=== PATIENT | male | born 1965 | race Caucasian/White ===

== ENCOUNTER 2025-06-11 11:58 | Observation (INO) ==
[2025-06-11] MEDS: ROCEPHIN VIAL 1 GRAM 1 G in NS 100 ML IV 100 ML IV SCH (13:04)
[2025-06-11] MEDS: ZITHROMAX INJ 500 MG VIAL 500 MG in NS 250 ML IV 250 ML IV SCH (13:04)
[2025-06-11 13:10] LABS: ABG BASE EXCESS 7.4 mmol/L (-2.0-2.0); ABG HCO3 32.0 mmol/L (22-26); ABG OXYGEN SATURATION 93.0 % (90-100); ABG PCO2 44.0 mmHg (35.0-45.0); ABG PH 7.470 (7.35-7.45); ABG PO2 64.0 mmHg (80.0-100.0)
[2025-06-11 13:11] LABS: ABG ALLEN TEST POS
[2025-06-11 13:28] LABS: BLOOD/HEMOGLOBIN,URINE NEGATIVE (NEGATIVE); LEUKOCYTE ESTERASE ,URINE NEGATIVE (NEGATIVE); NITRITES,URINE NEGATIVE (NEGATIVE)
[2025-06-11 13:31] VITALS: BMI 46.5
[2025-06-11 13:37] LABS: MEAN PLATELET VOLUME 8.4 fL (7.4-11.0); RED CELL DISTRIBUTION WIDTH 13.7 % (11.6-16.5)
[2025-06-11 13:38] LABS: APPEARANCE,URINE CLEAR (CLEAR)
[2025-06-11 13:45] LABS: CREATININE 1.05 mg/dL (0.70-1.30); eGFR NON BLACK RACES > 60 (>60)
[2025-06-11] MEDS: DUONEB 0.5 MG/3 MG (3 mL) NEB SCH (13:45)
[2025-06-11] MEDS: ULTRAM PO PRN (15:20)
--- NOTE | 2025-06-11 18:06 | DR.H&P ---
H&P History & Physical for Day of: H&P Date: 06/11/25 Chief Complaint Chief Complaint: CCC, SOB History of Present Illness History of Present Illness: PT IS 59 WM, DIRECT ADMIT FROM DR AWAD'S [facility] OFFICE WITH SOB AND INCREASED CCC. 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 PT WAS SEEN IN ER 7/3 AT [facility] AND WAS STARTED ON PO STEROIDS WITHOUT IMPROVEMENT. PT CO PRODUCTIVE COUGH AND WEAKNESS WITH POOR PO INTAKE. PT ADMITTED FOR TREATMENT AND EVALUATION OF ACUTE ILLNESS. Past Medical History Past Medical History: Anxiety, Asthma, COPD, Dyslipidemia and Hypertension Past Surgical History Surgical History: Abdominal Surgery, Ortho Surgery and Other Family History Family Medical History: Cancer and Heart Failure Social History Does patient currently use any type of tobacco product: No Have you used tobacco products in the last 12 months: No Type of Tobacco Use: None Does any household member use tobacco: No Alcohol Use: None Drug Use: None Medications Home Medications: Home Medications Medication Instructions Recorded Confirmed Type albuterol 90 mcg-budesonide 80 See Rx Instructions .Ro chilkoot .COMPLEX 05/27/25 06/11/25 History mcg/actuation HFA aerosol inhaler (Airsupra) amlodipine 10 mg tablet 10 mg PO QDAY 05/27/2506/11 History atorvastatin 10 mg tablet 10 mg PO QDAY 05/27/2506/11 History hydrochlorothiazide 25 mg tablet 25 mg PO QDAY 5 06/11/25 History hydroxyzine pamoate 25 mg capsule 25 mg PO BID 5 06/11/25 History losartan 50 mg tablet 50 mg PO QDAY 05/27/2506/11 History montelukast 10 mg tablet 10 mg PO QDAY 05/27/2506/11 History terbutaline 2.5 mg tablet 2.5 mg PO DAILY 05/27/25 History Allergies Allergies Allergy/AdvReac Type Severity Reaction Status Date / Time No Known Allergies Allergy Verified 06/11/25 13:17 Labs 06/11/25 13:25 06/11/25 13:25 Labs: Laboratory WBC 11.4 X10^3/uL (3.6-10.0) H 06/11/25 13:25 RBC 4.68 X10^6/uL (4.7-6.0) L 06/11/25 13:25 Hgb 13.9 g/dL (13.5-18.0) 06/11/25 13:25 Hct 42.0 % (42.0-54.0) 06/11/25 13:25 MCV 89.6 fL (80.0-100.0) 06/11/25 13:25 MCH 29.8 pg (27.0-34.0) 06/11/25 13:25 MCHC 33.2 g/dL (33.0-35.0) 06/11/25 13:25 RDW 13.7 % (11.6-16.5) 06/11/25 13:25 Plt Count 222 X10^3/uL (150.0-450.0) 06/11/25 13:25 MPV 8.4 fL (7.4-11.0) 06/11/25 13:25 Neut % (Auto) 51.3 % (42.0-75.0) 06/11/25 13:25 Lymph % (Auto) 24.9 % (21.0-51.0) 06/11/25 13:25 [place] % (Auto) 8.2 % (0.0-13.0) 06/11/25 13:25 Eos % (Auto) 14.7 % (0.9-2.9) H 06/11/25 13:25 Baso % (Auto) 0.9 % (0.2-1.0) 06/11/25 13:25 Neut # (Auto) 5.8 x10^3/uL (2.2-4.8) H 06/11/25 13:25 Lymph # (Auto) 2.8 X10^3/uL (1.3-2.9) 06/11/25 13:25 [place] # (Auto) 0.9 x10^3/uL (0.3-0.8) H 06/11/25 13:25 Eos # (Auto) 1.7 x10^3/uL (0.0-0.2) H 06/11/25 13:25 Baso # (Auto) 0.1 X10^3/uL (0.0-0.1) 06/11/25 13:25 Absolute Nucleated RBC 0.0 /100WBC 06/11/25 13:25 Sample Site Rr 06/11/25 13:03 ABG pH 7.470 (7.35-7.45) H 06/11/25 13:03 ABG pCO2 44.0 mmHg (35.0-45.0) 06/11/25 13:03 ABG pO2 64.0 mmHg (80.0-100.0) L 06/11/25 13:03 ABG HCO3 32.0 mmol/L (22-26) H* 06/11/25 13:03 ABG O2 Saturation 93.0 % (90-100) 06/11/25 13:03 ABG Base Excess 7.4 mmol/L (-2.0-2.0) H 06/11/25 13:03 Isaiah Test Pos 06/11/25 13:03 A-a Gradient 31.0 mmHg 06/11/25 13:03 FiO2 21.0 06/11/25 13:03 Blood Gas Comments Arslan well cb 06/11/25 13:03 Sodium 139 mmol/L (136-145) 06/11/25 13:25 Corrected Sodium TNP 06/11/25 13:25 Potassium 3.8 mmol/L (3.5-5.1) 06/11/25 13:25 Chloride 102 mmol/L (98-107) 06/11/25 13:25 Carbon Dioxide 31.3 mmol/L (21-32) 06/11/25 13:25 BUN 14 mg/dL (7-18) 06/11/25 13:25 Creatinine 1.05 mg/dL (0.70-1.30) 06/11/25 13:25 Est GFR (MDRD) Af Amer > 60 (>60) 06/11/25 13:25 Est GFR (MDRD) Non-Af > 60 (>60) 06/11/25 13:25 Glucose 104 mg/dL (65-99) H 06/11/25 13:25 Calcium 8.7 mg/dL (8.5-10.1) 06/11/25 13:25 Corrected Calcium TNP 06/11/25 13:25 Total Bilirubin 0.20 mg/dL (0.2-1.0) 06/11/25 13:25 AST 16 Units/L (15-37) 06/11/25 13:25 ALT 21 Units/L (12-78) 06/11/25 13:25 Alkaline Phosphatase 56 Units/L (46-116) 06/11/25 13:25 Total Protein 7.1 g/dL (6.4-8.2) 06/11/25 13:25 Albumin 3.9 g/dL (3.4-5.0) 06/11/25 13:25 Globulin 3.2 g/dL (2.5-4.5) 06/11/25 13:25 Albumin/Globulin Ratio 1.2 Ratio (1.1-2.1) 06/11/25 13:25 Specimen Type Clean catch urine 06/11/25 12:58 Urine Color Yellow (YELLOW) 06/11/25 12:58 Urine Appearance Clear (CLEAR) 06/11/25 12:58 Urine pH 7.0 (5.0 - 8.0) 06/11/25 12:58 Ur Specific [place] 1.015 (1.000-1.030) 06/11/25 12:58 Urine Protein Negative (NEGATIVE) 06/11/25 12:58 Urine Glucose (UA) Negative (NEGATIVE) 06/11/25 12:58 Urine Ketones Negative (NEGATIVE) 06/11/25 12:58 Urine Blood Negative (NEGATIVE) 06/11/25 12:58 Urine Nitrite Negative (NEGATIVE) 06/11/25 12:58 Urine Bilirubin Negative (NEGATIVE) 06/11/25 12:58 Urine Urobilinogen Normal (NORMAL) 06/11/25 12:58 Ur Leukocyte Esterase Negative (NEGATIVE) 06/11/25 12:58 Review of Systems Constitutional: Weakness and Malaise Eyes: No Symptoms Reported ENT: No Symptoms Reported Respiratory: Cough, Shortness of Breath, SOB with Excertion, Sputum and Wheezing Cardiovascular: Palpitations Gastrointestinal: Nausea Genitourinary: No Symptoms Reported Musculoskeletal: Back Pain Skin: No Symptoms Reported Neurological: Weakness Physical Exam Vital Signs: Vital Signs Temperature 98.1 F Temperature 98.3 F Pulse Rate [Left Radial] 87 Pulse Rate [Left Radial] 84 Pulse Rate 80 Pulse Rate 80 Respiratory Rate 20 Respiratory Rate 19 Respiratory Rate 20 Respiratory Rate 22 Respiratory Rate 20 Blood Pressure [Left Arm] 128/65 Blood Pressure [Left Arm] 144/90 Blood Pressure 151/84 O2 Sat by Pulse Oximetry 97 O2 Sat by Pulse Oximetry 92 O2 Sat by Pulse Oximetry 92 O2 Sat by Pulse Oximetry 94 Oriented: Normal Ear: Normal Nose: Normal Throat: Dry Respiratory: Diminished Throughout and Wheezes Throughout Cardiovascular: Tachycardia Auscultation: Bowel Sounds: Normal Palpation: Normal Tenderness: Normal Skin: Decreased Turgur Musculoskeletal: Back:Lumbar Psychiatric: Anxiety Mood Description: Anxious Affect: Anxious Speech Pattern: Clear and Appropriate Assessment/Plan (1) Acute exacerbation of chronic obstructive pulmonary disease (COPD): Status: Acute Plan: ADMIT, IV ATBX SOLU MEDROL IV, DUO NEBS CXR ON ADMISSION, SPUTUM CULTURE PRN SUPPLEMENTAL O2 VERIFY HOME MEDICATIONS BP CONTROL (2) Hypertension: Status: Acute
[2025-06-11] MEDS: ROBITUSSIN DM PO SCH (18:21)
[2025-06-11] MEDS: PULMICORT NEB TX 0.5 MG NEB SCH (20:31)
[2025-06-11] MEDS: PROTONIX INJ 40 MG VIAL IVP SCH (20:33)
[2025-06-12 06:02] LABS: MEAN PLATELET VOLUME 8.9 fL (7.4-11.0); RED CELL DISTRIBUTION WIDTH 13.6 % (11.6-16.5)
[2025-06-12 06:20] LABS: COR NA(FOR HYPERGLY) 141 mmol/L (136-145); CREATININE 1.07 mg/dL (0.70-1.30); eGFR NON BLACK RACES > 60 (>60)
--- NOTE | 2025-06-12 08:24 | RAD ---
EXAM: Chest AP and lateral views HISTORY: COPD COMPARISON: 05/27/2025 br.br.br.br infiltrates. The frontal projection is position limited with lordotic projection. Diaphragm is low and flattened consistent with pulmonary hyperinflation. No significant pleural effusion is identified. IMPRESSION: No acute chest abnormality demonstrated. THIS IS AN ELECTRONICALLY VERIFIED FINAL REPORT 06/12/2025 8:21 AM - Electronically signed by Moses Figueroa MD
[2025-06-12] MEDS: LIPITOR TAB 10 MG PO SCH (08:51)
[2025-06-12] MEDS: K-DUR TAB 20 MEQ PO ONE (08:51)
[2025-06-12] MEDS: NORVASC TAB 10 MG PO SCH (08:52)
[2025-06-12] MEDS: COZAAR PO SCH (08:52)
[2025-06-12] MEDS: SINGULAIR TAB 10 MG PO SCH (08:52)
[2025-06-12] MEDS: MAG-OX TAB PO SCH (08:54)
[2025-06-12] MEDS ORDERED: TERBUTALINE 2.5 MG PO SCH (09:00)
[2025-06-12] MEDS: TYLENOL 325 MG TAB PO PRN (09:35)
[2025-06-12] MEDS: BRETHINE PO SCH (10:35)
[2025-06-12] MEDS: CONSULT PHARMACY - POTASSIUM & MAGNESIUM XX SCH (20:25)
[2025-06-12] MEDS: NORCO 5/325 MG TAB PO PRN (20:30)
[2025-06-13 07:46] VITALS: RESP 20
[2025-06-13] MEDS ORDERED: NS 250 ML IV 250 ML IV ONE (08:20)
[2025-06-13 08:57] LABS: MEAN PLATELET VOLUME 9.2 fL (7.4-11.0); RED CELL DISTRIBUTION WIDTH 14.0 % (11.6-16.5)
[2025-06-13 09:08] LABS: COR NA(FOR HYPERGLY) 143 mmol/L (136-145); CREATININE 0.95 mg/dL (0.70-1.30); eGFR NON BLACK RACES > 60 (>60)
[2025-06-13 09:19] LABS: ABG BASE EXCESS 5.1 mmol/L (-2.0-2.0); ABG HCO3 29.9 mmol/L (22-26); ABG OXYGEN SATURATION 94.0 % (90-100); ABG PCO2 44.0 mmHg (35.0-45.0); ABG PH 7.440 (7.35-7.45); ABG PO2 69.0 mmHg (80.0-100.0)
[2025-06-13 09:20] LABS: ABG ALLEN TEST POS
[2025-06-13 09:37] LABS: BAND NEUTROPHILS % 4 % (0-10); PLATELET MORPHOLOGY COMMENT NORMAL (NORMAL)
--- NOTE | 2025-06-13 10:32 | RAD ---
EXAM: CHEST, 1 VIEW HISTORY: COPD; COMPARISON: Prior study or studies were utilized for comparison during interpretation with the most relevant dated 06/11/2025 TECHNIQUE: CHEST, 1 VIEW FINDINGS: Chest: Lines and tubes: None Mediastinum: Borderline cardiomegaly. Pulmonary vessels: No pulmonary vascular congestion. Lung fowler: No suspicious airspace opacity. Pleura: No effusion. No pneumothorax. Bones and soft tissues: No acute osseous or soft tissue abnormality. IMPRESSION: 1. No acute cardiopulmonary abnormality THIS IS AN ELECTRONICALLY VERIFIED FINAL REPORT 06/13/2025 10:29 AM - Electronically signed by Kraig Angulo MD
[2025-06-13 11:46] VITALS: BP 128/68; PULSE 88; TEMP 98; O2SAT 96
--- NOTE | 2025-06-14 09:27 | CT ---
EXAM: CT CERVICAL SPINE WITHOUT CONTRAST HISTORY: neck pain; . COMPARISON: None. TECHNIQUE: Axial CT images were obtained through the cervical spine without contrast. Coronal and sagittal reformations were post processed. All CT scans at this facility use dose modulation, iterative reconstruction, and/or weight based dosing when appropriate to reduce radiation dose to as low as reasonably achievable. FINDINGS: C-SPINE: Moderate multilevel degenerative disc disease is noted. Curvature vertebral body heights and alignment are maintained. Multilevel facet arthropathy. Degenerative changes in the cervical spine are worst at C4-5 and C5-6. No acute hiatal or alignment abnormality SURROUNDING SOFT TISSUES: Within normal limits. LUNG APICES: Within normal limits. IMPRESSION: No evidence of acute injury in the cervical spine. Multilevel degenerative changes are apparent THIS IS AN ELECTRONICALLY VERIFIED FINAL REPORT 06/14/2025 9:23 AM - Electronically signed by Taco Jane MD
--- NOTE | 2025-06-14 09:28 | CT ---
EXAM: CT LUMBAR SPINE WITHOUT CONTRAST HISTORY: lower back pain; . COMPARISON: None. TECHNIQUE: Axial CT images were obtained through the lumbar spine without IV contrast. Coronal and sagittal reformations were post processed. All CT scans at this facility use dose modulation, iterative reconstruction, and/or weight based dosing when appropriate to reduce radiation dose to as low as reasonably achievable. FINDINGS: SPINE: Moderate multilevel degenerative disc disease is noted. Curvature vertebral body heights and alignment are within normal limits. Multilevel facet arthropathy is apparent. SURROUNDING SOFT TISSUES: Within normal limits. IMPRESSION: Multilevel degenerative changes in the lumbar spine with mild diffuse disc space narrowing and diffuse broad-based disc protrusions with facet arthropathy. No acute injury. THIS IS AN ELECTRONICALLY VERIFIED FINAL REPORT 06/14/2025 9:24 AM - Electronically signed by Taco Jane MD
== END 2025-06-13 13:55 | disposition home or self-care (01) ==
LOC: MED/SURG
PROVIDERS: ADMIT Internal Medicine; ATTEND Internal Medicine
DX: Z68.42 Body mass index [BMI] 45.0-49.9, adult; F41.8 Other specified anxiety disorders; E78.5 Hyperlipidemia, unspecified; Z59.86 Financial insecurity; E66.01 Morbid (severe) obesity due to excess calories; M19.90 Unspecified osteoarthritis, unspecified site; R53.1 Weakness; R06.02 Shortness of breath; J44.1 Chronic obstructive pulmonary disease with (acute) exacerbation; K21.9 Gastro-esophageal reflux disease without esophagitis; M50.30 Other cervical disc degeneration, unspecified cervical region; R73.09 Other abnormal glucose; M51.26 Other intervertebral disc displacement, lumbar region; Z99.81 Dependence on supplemental oxygen; I10 Essential (primary) hypertension